=== PATIENT | female | born 1940 ===

== ENCOUNTER 2018-08-28 20:23 | Emergency (ER) | payer MEDICARE, OTHER ==
[2018-08-28 20:28] VITALS: O2SAT 99
--- NOTE | 2018-08-28 21:13 | ED PDOC ---
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 Patient states she has having smaller, more hard bowel movements than usual, with mucous mixed in. Patient states she feels distended, and passing more gas than usual. Denies fever, nausea/vomiting, chest pain, shortness of breath, palpitations, urinary symptoms, recent travel. Patient reports similar pain last year when she was told she had diverticulitis, has a colonoscopy scheduled for this December Patient here from [place] visiting [facility]. Past Medical History Reviewed: Historical Data, Nursing Documentation, Vital Signs Vital Signs: Last Vital Signs Temp 97.9 F 08/28/18 20:28 Pulse 79 08/28/18 20:28 Resp 16 08/28/18 20:28 BP 119/76 08/28/18 20:28 Pulse Ox 99 08/28/18 20:28 Primary Care Provider: Procedure,Nonphys - Medical History PMH: Diabetes, Diverticulitis, HTN, Hypercholesterolemia - Surgical History Surgical History: Tonsillectomy, - Family History Family History: States: No Known Family Hx - Living Arrangements Living Arrangements: With Family - Home Medications Home Medications: Ambulatory Orders Medication Instructions Recorded Dicyclomine [Bentyl] 20 mg PO TID PRN #15 tab 08/29/18 - Allergies Allergies/Adverse Reactions: Allergies Allergy/AdvReac Type Severity Reaction Status Date / Time ibuprofen Allergy RASH Verified 08/28/18 21:07 Review of Systems ROS Statement: Except As Marked, All Systems Reviewed And Found Negative Gastrointestinal: Positive for: Abdominal Pain Physical Exam - Reviewed Nursing Documentation Reviewed: Yes Vital Signs Reviewed: Yes - Physical Exam Appears: Positive for: Well, Non-toxic, No Acute Distress Head Exam: Positive for: ATRAUMATIC, NORMAL INSPECTION, NORMOCEPHALIC Skin: Positive for: Normal Color Eye Exam: Positive for: Normal appearance ENT: Positive for: Normal ENT Inspection Cardiovascular/Chest: Positive for: Regular Rate, Rhythm Respiratory: Positive for: Normal Breath Sounds Gastrointestinal/Abdominal: Positive for: Bowel Sounds, Soft, Tenderness (LLQ), Distended Back: Positive for: Normal Inspection Extremity: Positive for: Normal ROM Neurological/Psych: Positive for: Awake, Alert, Oriented (x3) - Laboratory Results Result Diagrams: 08/28/18 21:40 08/28/18 21:40 - ECG ECG: Positive for: Viewed By [place] ECG Rhythm: Positive for: Venticular Paced O2 Sat by Pulse Oximetry: 99 - Progress ED Course And Treament: -cbc -cmp -lipase -lactic acid -blood culture -urinalysis -CT abd/pelvis with IV contrast -IV NS bolus -IV pepcid 21:45 Patient anxious, states she feels nervous Ativan ordered EXAM: CT Abdomen and Pelvis with IV contrast CLINICAL HISTORY: Llq pain TECHNIQUE: Axial computed tomography images of the abdomen and pelvis with intravenous contrast. 754.49 mGy-cm CONTRAST: With; [id number] 95ML COMPARISON: None provided. FINDINGS: LUNG BASES: The lung bases appear clear. No pleural effusions are seen. LIVER: Unremarkable. GALLBLADDER AND BILE DUCTS: The gallbladder appears within normal limits. No radioopaque gallstones are seen. No biliary ductal dilatation is evident. PANCREAS: Unremarkable. SPLEEN: Unremarkable. ADRENAL GLANDS: A 1.9 x 1.4 cm solid mass with peripheral calcific rim is seen in the left adrenal gland. This is likely the result of prior inflammation and/or hemorrhage. Unremarkable right adrenal gland. KIDNEYS, URETERS, AND BLADDER: The kidneys appear within normal limits. A 2.2 cm cyst arises from the posterior upper left renal pole. A 1.8 cm cyst arises from the posterior lower left renal pole. A 1.1 cm cyst is seen in the medial mid right renal pole.There is no hydronephrosis or hydroureter. No urinary calculi are seen. The urinary bladder appears normal in size and configuration. STOMACH AND BOWEL: Unremarkable appearance of the stomach. No evidence of bowel obstruction. Mucosal wall thickening is seen throughout the small intestinal tract. Fluid is seen throughout the small intestinal lumen. These findings are thought compatible with diffuse enteritis. Infectious or inflammatory etiologies are thought most likely. No evidence suggesting colitis. There is diverticulosis coli seen in the descending, sigmoid and rectosigmoid colon. No evidence of acute diverticulitis identified. APPENDIX: No evidence of acute appendicitis on CT examination. PERITONEUM: No free fluid. No free air. A small umbilical hernia is present which contains fat. LYMPH NODES: No lymphadenopathy is evident. REPRODUCTIVE: Unremarkable as visualized. VASCULATURE: No evidence of abdominal aortic aneurysm. Moderate atherosclerotic vascular plaquing is present. BONES: No aggressive appearing osseous lesion. No acute osseous pathology evident. There is evidence of advanced degenerative disc disease at L4-5 and L5-S1. IMPRESSION: 1. Evidence of diffuse enteritis. 2. Diverticulosis coli in the left hemicolon without evidence of acute diverticulitis. 3. 1.9 x 1.4 cm mass with peripheral calcific rim in the left adrenal gland. This is usually subsequent to prior inflammation and/or hemorrhage. 4. A small umbilical hernia is noted which contains fat Patient refusing to give stool sample in ED; states she will follow up with her primary doctor Patient educated on findings, discharged with instructions to follow up with her GI within 2-3 days Patient requesting medication for "spasms", rx Bentyl provided Patient given strict return precautions, including fever, vomiting, worsening pain, diarrhea, or other concerning symptoms Disposition - Clinical Impression Clinical Impression: Abdominal pain, Diverticulosis, Enteritis - Patient ED Disposition Is Patient to be Admitted: No Counseled Patient/Family Regarding: Studies Performed, Diagnosis, Need For Followup, Rx Given - Disposition Disposition: Routine/Home Disposition Time: 00:03 Condition: IMPROVED Prescriptions: Dicyclomine [Bentyl] 20 mg PO TID PRN #15 tab PRN Reason: Pain, Mild (1-3) Instructions: Diverticulosis, Acute Abdomen (Belly Pain), Adult (DC), Viral Gastroenteritis, High Fiber Diet Forms: [employer] (French) Print Language: EGYPTIAN
[2018-08-28] MEDS ORDERED: Sodium Chloride 0.9% 1,000 ML IV STA (21:14)
[2018-08-28 21:53] LABS: BASO % 0.7 % (0.0-2.0); EOS # 0.3 K/uL (0.0-0.7); EOS % 3.6 % (0.0-4.0); HEMOGLOBIN 13.3 g/dL (12.0-16.0); LYMPH # 2.1 K/uL (1.0-4.3); LYMPH % 30.5 % (20.0-40.0); MEAN CELL VOLUME 90.1 fl (81.0-99.0); MEAN CORPUSCULAR HEMOGLOBIN 30.7 pg (27.0-31.0); MEAN CORPUSCULAR HGB CONC 34.1 g/dL (33.0-37.0); MEAN PLATELET VOLUME 8.7 fl (7.2-11.7); MONO # 0.6 K/uL (0.0-0.8); MONO % 9.2 % (0.0-10.0); NEUT # 3.9 K/uL (1.8-7.0); RBC 4.33 Mil/uL (3.80-5.20); RED CELL DISTRIBUTION WIDTH 13.8 % (11.5-14.5)
[2018-08-28 21:54] LABS: SQUAMOUS EPITHIAL < 1 /hpf (0-5); URINE BILIRUBIN NEGATIVE (NEGATIVE); URINE BLOOD NEGATIVE (NEGATIVE); URINE CLARITY CLEAR (Clear); URINE COLOR STRAW (YELLOW); URINE GLUCOSE (UA) >=500 mg/dL (NEGATIVE); URINE LEUKOCYTE ESTERASE NEG Leu/uL (Negative); URINE PROTEIN NEGATIVE (NEGATIVE); URINE UROBILINOGEN 0.2-1.0 mg/dL (0.2-1.0)
[2018-08-28 22:02] LABS: ALB/GLOB RATIO 1.4 (1.0-2.1); ALBUMIN 4.4 g/dL (3.5-5.0); BLOOD UREA NITROGEN 17 mg/dl (7-17); CALCIUM 8.9 mg/dL (8.4-10.2); GFR NON-AFRICAN AMERICAN > 60; LIPASE 45 U/L (23-300)
[2018-08-28] MEDS ORDERED: Iohexol 300 100 ML IJ ONE (22:08)
[2018-08-28] MEDS ORDERED: Sodium Chloride 0.9% 50 ML IV ONE (22:09)
[2018-08-28 22:14] LABS: ALT/SGPT 25 U/L (9-52); AST/SGOT 30 U/L (14-36)
[2018-08-29 00:35] VITALS: BP 121/68; PULSE 72; RESP 15; TEMP 98.2
--- NOTE | 2018-08-29 08:51 | CARD ---
APPROVED REPORT Date of service: 08/28/2018 EKG Measurement Heart [id number] <Conclusion> Atrial-sensed ventricular-paced rhythm Abnormal ECG
--- NOTE | 2018-08-29 11:24 | CT ---
Date of service: 08/28/2018 PROCEDURE: CT Abdomen and Pelvis with contrast HISTORY: LLQ pain COMPARISON: None. TECHNIQUE: Following the intravenous administration of iodinated contrast material, a CT examination of the abdomen and pelvis was performed from the domes of the diaphragms to the symphysis pubis with reformatted datasets provided in axial, sagittal and coronal planes. Oral contrast was not administered as per referring physician request. Contrast dose: Omnipaque 300, 95 cc Radiation dose: Total exam DLP = 754.49 mGy-cm. This CT exam was performed using one or more of the following dose reduction techniques: Automated exposure control, adjustment of the mA and/or kV according to patient size, and/or use of iterative reconstruction technique. FINDINGS: LOWER THORAX: Mild cardiomegaly is appreciated with multiple pacemaker leads identified at the right heart. No pleural or pericardial effusion. Small hiatal hernia. LIVER: There appears upper limits normal size with no gross lesion or ductal dilatation associated. GALLBLADDER AND BILE DUCTS: Unremarkable. PANCREAS: Unremarkable. No gross lesion or ductal dilatation. SPLEEN: Unremarkable. ADRENALS: There is a peripherally calcified complex cyst or nodule at the left adrenal gland measuring 2.2 x 1.5 cm with right adrenal gland appearing normal. KIDNEYS AND URETERS: Multiple cysts are identified infrequently bilaterally with solitary simple cyst identified at the upper pole right kidney medially, measuring 1.4 cm. An upper pole left renal cyst is a dominant cyst measuring 2.2 cm and appearing simple as well. It is an additional simple cyst is identified at the lower pole left kidney measuring 2.1 cm. No radiodense urolithiasis or hydronephrosis. No solid mass. VASCULATURE: Nonaneurysmal abdominal aortic calcific atherosclerotic changes are identified. BOWEL: No bowel obstruction or gross mural thickening is identified throughout the large or small bowel with moderately prominent fecal loading seen at the right hemicolon. Advanced diverticular changes affect the distal left hemicolon, seen worst at the sigmoid segment, but without acute diverticular changes. APPENDIX: No CT evidence of appendicitis. PERITONEUM: A small umbilical hernia contains only mesenteric fat, with peritoneum otherwise unremarkable appearing. No free fluid. No free air. LYMPH NODES: Unremarkable. No enlarged lymph nodes. BLADDER: Unremarkable. REPRODUCTIVE: Possible limited uterine fibroid disease. BONES: Gross multilevel lumbar spondylosis without fracture or spondylolisthesis identified. No destructive bony lesion appreciated throughout the bony elements of the abdomen and pelvis. OTHER FINDINGS: None. IMPRESSION: No definitive acute abdominal pelvic findings as discussed above. Bilateral renal cyst. No obstructive uropathy bilaterally or radiodense urolithiasis. Possible limited uterine fibroid disease. Small umbilical hernia containing only fat. Discordant preliminary report from [place] preliminary report regarding comments of diffuse enteritis, which I do not see. Preliminary report provided by [place], 08/28/2018, 11:06 p.m..
== END 2018-08-29 00:45 | disposition home or self-care (01) ==
LOC: H.ER 20:23
DX: R10.32 Left lower quadrant pain (principal); K52.9 Noninfective gastroenteritis and colitis, unspecified; K57.30 Diverticulosis of large intestine without perforation or abscess without bleeding; K42.9 Umbilical hernia without obstruction or gangrene; E11.9 Type 2 diabetes mellitus without complications; E78.00 Pure hypercholesterolemia, unspecified; I10 Essential (primary) hypertension; N28.1 Cyst of kidney, acquired
CPT/HCPCS: 74177; 80053; 81003; 82948; 83605; 83690; 85025; 87040; 93005; 96374; 96375; 99284; J2060; J7030; Q9967